=== PATIENT | male | born 1935 | race Caucasian/White ===

== ENCOUNTER → 2022-05-23 10:05 | Outpatient (BNVA) | payer MEDICARE, OTHER, SELFPAY | PROVIDERS: Family Provider Family Medicine; PCP Electrodiagnostic Medicine; Visit Provider Registered Nurse Neonatal Intensive Care | DX: Z20.822 Contact with and (suspected) exposure to COVID-19 (principal); R50.9 Fever, unspecified | CPT/HCPCS: 87426 ==

== ENCOUNTER 2022-06-23 19:47 | Emergency (ER) | payer MEDICARE, OTHER, SELFPAY ==
[2022-06-23 20:38] VITALS: BP 122/71; PULSE 82; RESP 18; TEMP 37; O2SAT 98; BMI 21.2
--- NOTE | 2022-06-23 20:49 | XRR_ITS ---
PROCEDURE INFORMATION: Exam: XR Chest Exam date and time: 06/23/2022 9:52 PM Age: 86 years old Clinical indication: Chest wall pain; Additional info: Right side pain TECHNIQUE: Imaging protocol: Radiologic exam of the chest. Views: 1 view. COMPARISON: No relevant prior studies available. FINDINGS: Lungs: Unremarkable. No consolidation. Pleural spaces: Unremarkable. No pleural effusion. No pneumothorax. Heart/Mediastinum: Unremarkable. No cardiomegaly. Bones/joints: Unremarkable. XR/XR chest 1V portable [id number] IMPRESSION: No acute findings.
[2022-06-23 23:00] VITALS: RESP 16
[2022-06-23] MEDS: fentaNYL 50 mcg/mL INJ 2mL 25 MCG IVP ×2 (23:00→23:58)
--- NOTE | 2022-06-23 23:18 | ED_ITS ---
Documented by User: OVIDIO JoinerP-Aura 06/23/22 23:22 HPI - General Adult General: Chief complaint: General Medical Stated complaint: Right side pain Time Seen by Provider: 06/23/22 22:30 History of Present Illness: 86-year-old male patient in today for right side pain. He reports that he was just sitting at dinner and suddenly got sharp right-sided pain. He reports it is worse with deep inspiration. He denies any trauma. He denies fever or chills. He denies shortness of breath or cough. He denies any urinary symptoms. He states that he has never had pain like this before. He reports it was a 7 to an 8 on a 0-to-10 scale. He did take some Tylenol but is currently about a 5 on a 0-to-10 scale. Associated symptoms: Deny chest pain, dyspnea or palpitations Review of Systems Const: Denies: fever(s) or chills Card: Denies: chest pain or palpitations Resp: Denies: dyspnea GI: Reports: other (Right side pain) : Denies: flank pain, difficulty urinating, dysuria, urinary frequency, urinary urgency or urinary hesitancy Physical Exam Const: COMMON NORMALS: no acute distress, patient oriented x3 and alert Resp: COMMON NORMALS: normal respiratory effort, No use of accessory muscles and clear to auscultation bilaterally AUSCULTATION: clear to auscultation bilaterally Cardio: COMMON NORMALS: regular rate JUGULAR VENOUS DISTENTION: no JVD RATE: regular rate HEART SOUNDS: Murmur heart sound present GI: COMMON NORMALS: Normal to inspection, nondistended, normoactive bowel sounds present, Soft to palpation and non-tender PALPATION: Yes Soft to palpation GI image (male): 1. Right side pain : COMMON NORMALS: Yes no CVA tenderness BLADDER/KIDNEY EXAM: Yes no CVA tenderness Back/Pelvis: COMMON NORMALS: no CVA tenderness Neuro: COMMON NORMALS: patient oriented x3 SENSORIUM/ORIENTATION: Yes alert Course Vital Signs: Vital signs: Vital Signs Temperature 98.6 F 06/23/22 20:38 Pulse Rate 82 06/23/22 20:38 Respiratory Rate 14 06/23/22 23:58 Blood Pressure 122/71 06/23/22 20:38 Pulse Oximetry 98 06/23/22 20:38 Oxygen Delivery Me thod 06/23/22 20:38 MDM - General Adult Medical Decision Making Awaiting labs, UA dip, chest x-ray. Will give fentanyl one-time dose for pain. Lab Data : 06/23/22 23:17 06/23/22 23:02 Radiology Impressions Chest X-Ray 06/23/22 20:49 IMPRESSION: No acute findings. Abdomen/Pelvis CT 06/24/22 00:00 IMPRESSION: 1. Prominent fluid in the small bowel without dilation suggestive of an enteritis. 2. Coronary artery atherosclerotic calcifications. 3. Bilateral dependent atelectasis versus infiltrate. 4. Several hepatic cysts. 5. Bilateral renal cysts, negative for follow up. 6. Bilateral punctate benign-appearing renal parenchymal calcifications. COMMENTS: Consistent with the [employer]'s Incidental Findings Committee white paper (J Am Gerald Radiol 2018): Any incidental renal lesion less than 1 cm or classified as too small to characterize, or any incidental cystic renal lesion characterized as simple-appearing, is likely benign. No follow-up imaging is recommended for these lesions per consensus recommendations based on imaging criteria. Laboratory Results WBC 8.3 10^3/uL (4.0-10.0) 06/23/22 23:17 Corrected WBC Cancelled 06/23/22 23:02 RBC 3.38 10^6/uL (4.1-5.3) L 06/23/22 23:17 Hgb 10.6 g/dL (11.7-16.6) L 06/23/22 23:17 Hct 33.3 % (42.0-52.0) L 06/23/22 23:17 MCV 98.5 fl (80-94) H 06/23/22 23:17 MCH 31.4 pg (28.0-34.0) 06/23/22 23:17 MCHC 31.8 g/dL (30.0-36.0) 06/23/22 23:17 RDW 12.4 % (12.1-15.1) 06/23/22 23:17 Plt Count 273 10^3/cmm (130-400) 06/23/22 23:17 MPV 9.3 fL (7.4-10.4) 06/23/22 23:17 Gran % Cancelled 06/23/22 23:02 Neut % (Auto) 56.0 % 06/23/22 23:17 Lymph % (Auto) 25.9 % 06/23/22 23:17 Stanton % (Auto) 14.1 % 06/23/22 23:17 Eos % (Auto) 3.0 % 06/23/22 23:17 Baso % (Auto) 0.4 % 06/23/22 23:17 Neut # (Auto) 4.67 10^3/uL (1.8-7.7) 06/23/22 23:17 Lymph # (Auto) 2.2 10^3/uL (0.8-4.8) 06/23/22 23:17 Stanton # (Auto) 1.2 10^3/uL (0.2-0.9) H 06/23/22 23:17 Eos # (Auto) 0.3 10^3/uL (0.0-0.8) 06/23/22 23:17 Baso # (Auto) 0.0 10^3/uL (0.0-0.1) 06/23/22 23:17 Absolute Gran (auto) Cancelled 06/23/22 23:02 Nucleated RBC % (auto) 0 % 06/23/22 23:17 Nucleated RBCs # 0.0 /100WBC 06/23/22 23:17 Sodium 137 mmol/L (136-145) 06/23/22 23:02 Potassium 4.6 mmol/L (3.5-5.1) 06/23/22 23:02 Chloride 101 mmol/L (98-107) 06/23/22 23:02 Carbon Dioxide 24 mmol/L (22-29) 06/23/22 23:02 Anion Gap 16.6 (5-19) 06/23/22 23:02 BUN 25 mg/dL (8-23) H 06/23/22 23:02 Creatinine 1.3 mg/dL (0.7-1.2) H 06/23/22 23:02 GFR Calculation Not Reportable 06/23/22 23:02 Glucose 102 mg/dL (65-115) 06/23/22 23:02 Calculated Osmolality 289 mOsm/kg (285-295) 06/23/22 23:02 Calcium 8.6 mg/dL (8.5-10.5) 06/23/22 23:02 Total Bilirubin 0.3 mg/dL (0.15-1.2) 06/23/22 23:02 AST 16 U/L (0-40) 06/23/22 23:02 ALT 11 U/L (0-41) 06/23/22 23:02 Alkaline Phosphatase 101 U/L (40-130) 06/23/22 23:02 Total Protein 6.6 g/dL (6.6-8.7) 06/23/22 23:02 Albumin 3.3 g/dL (3.5-5.2) L 06/23/22 23:02 Globulin 3.3 g/dL (1.3-4.6) 06/23/22 23:02 Lipase 39 U/L (13-60) 06/23/22 23:02 Urine Color Jaci (Yellow) 06/23/22 23:50 Urine Appearance Clear (CLEAR) 06/23/22 23:50 Urine pH 6 (5-7) 06/23/22 23:50 Ur Specific Purdys 1.020 (1.005-1.030) 06/23/22 23:50 Urine Protein Neg (Negative) 06/23/22 23:50 Urine Glucose (UA) Norm (Normal) 06/23/22 23:50 Urine Ketones Negative (Negative) 06/23/22 23:50 Urine Blood Neg (Negative) 06/23/22 23:50 Urine Nitrate Negative (Negative) 06/23/22 23:50 Urine Bilirubin Neg (Negative) 06/23/22 23:50 Urine Urobilinogen 4 mg/dL (Negative) H 06/23/22 23:50 Ur Leukocyte Esterase Negative (Negative) 06/23/22 23:50 Discharge Plan Discharge Patient Disposition: Home Clinical Impression: Acute flank pain Condition: Stable Prescriptions: New hydrocodone-acetaminophen 5-325 mg tablet 1 tab PO Q6H PRN (Reason: pain) Qty: 14 0RF ondansetron 4 mg tablet,disintegrating 4 mg PO Q6H PRN (Reason: nausea and vomiting) Qty: 14 0RF No Action nirmatrelvir-ritonavir 150 mg x 2- 100 mg tablet See Rx Instructions PO .COMPLEX Qty: 30 0RF Rx Instructions: take TWO 150 mg tablets of nirmatrelvir with ONE 100 mg tablet of ritonavir twice daily for 5 days PO methylprednisolone [Medrol (Vicente)] 4 mg tablets,dose pack See Rx Instructions PO PER PKG DIR Qty: 21 0RF Rx Instructions: PO PER PKG DIR Discharge Orders: Discharge ED (Routine); Ordered 06/24/22 Ordered By: Pilar Poe Referrals: Ar Thompson DO [Primary Care Provider] - Discharge Diet: Advance as tolerated Discharge Activity: Resume usual activity Patient Instructions: Flank Pain (ED), Opioid Safety Coding Level of Care Code ED [employer] Account Assistant for Chg Fwd Exam Detailed Documented by User: Pilar Poe MD 06/24/22 01:21 HPI - General Adult General: Chief complaint: General Medical Stated complaint: Right side pain Time Seen by Provider: 06/23/22 22:30 Physical Exam GI: GI image (male): 1. Right side pain Course Vital Signs: Vital signs: Vital Signs Temperature 98.6 F 06/23/22 20:38 Pulse Rate 82 06/23/22 20:38 Respiratory Rate 14 06/23/22 23:58 Blood Pressure 122/71 06/23/22 20:38 Pulse Oximetry 98 06/23/22 20:38 Oxygen Delivery Me thod 06/23/22 20:38 MDM - General Adult Medical Decision Making Awaiting labs, UA dip, chest x-ray. Will give fentanyl one-time dose for pain. Took patient over from midlevel his pain is improved here CT scan shows no acute abnormalities we will prescribe him pain meds he is stable for discharge he is to follow-up with his PCP and return if worsening. Lab Data : 06/23/22 23:17 06/23/22 23:02 Radiology Impressions Chest X-Ray 06/23/22 20:49 IMPRESSION: No acute findings. Abdomen/Pelvis CT 06/24/22 00:00
[2022-06-23 23:29] LABS: Basophils % 0.4 %; Eosinophils # 0.3 10^3/uL (0.0-0.8); Hematocrit 33.3 % (42.0-52.0); Hemoglobin 10.6 g/dL (11.7-16.6); Lymphocytes # 2.2 10^3/uL (0.8-4.8); Lymphocytes % 25.9 %; Mean Corpuscular HGB Conc 31.8 g/dL (30.0-36.0); Mean Corpuscular Hemoglobin 31.4 pg (28.0-34.0); Mean Corpuscular Volume 98.5 fl (80-94); Mean Platelet Volume 9.3 fL (7.4-10.4); Monocytes # 1.2 10^3/uL (0.2-0.9); Monocytes % 14.1 %; Neutrophils # 4.67 10^3/uL (1.8-7.7); Nucleated Red Blood Cells % 0 %; Platelet Count 273 10^3/cmm (130-400); Red Blood Count 3.38 10^6/uL (4.1-5.3); Red Cell Distribution Width 12.4 % (12.1-15.1); White Blood Count 8.3 10^3/uL (4.0-10.0)
[2022-06-23 23:35] LABS: Alanine Aminotransferase 11 U/L (0-41); Albumin Level 3.3 g/dL (3.5-5.2); Alkaline Phosphatase 101 U/L (40-130); Aspartate Amino Transferase 16 U/L (0-40); Blood Urea Nitrogen 25 mg/dL (8-23); Calcium 8.6 mg/dL (8.5-10.5); Carbon Dioxide 24 mmol/L (22-29); Chloride 101 mmol/L (98-107); Globulin 3.3 g/dL (1.3-4.6); Glucose 102 mg/dL (65-115); Lipase 39 U/L (13-60); Osmolality Calculated 289 mOsm/kg (285-295); Sodium 137 mmol/L (136-145); Total Bilirubin 0.3 mg/dL (0.15-1.2); Total Protein 6.6 g/dL (6.6-8.7)
[2022-06-23 23:36] LABS: Anion Gap 16.6 (5-19); Potassium 4.6 mmol/L (3.5-5.1)
[2022-06-23 23:58] VITALS: RESP 14
--- NOTE | 2022-06-24 | CTR_ITS ---
PROCEDURE INFORMATION: Exam: CT Abdomen And Pelvis With Contrast Exam date and time: 06/24/2022 12:54 AM Age: 86 years old Clinical indication: Abdominal pain; Localized; Right; Patient HX: C/O RT sided abd pain. TECHNIQUE: Imaging protocol: Computed tomography of the abdomen and pelvis with contrast. Radiation optimization: All CT scans at this facility use at least one of these dose optimization techniques: automated exposure control; mA and/or kV adjustment per patient size (includes targeted exams where dose is matched to clinical indication); or iterative reconstruction. Contrast material: OMNI 350; Contrast volume: 80 ml; Contrast route: INTRAVENOUS (IV); COMPARISON: CR (CHEST, ) 06/23/2022 9:52 PM RADIATION DOSE METRICS: Total DLP (mGy-cm): 395.23 FINDINGS: Lungs: Bilateral dependent atelectasis versus infiltrate. Heart: Coronary artery atherosclerotic calcifications. Liver: Several hepatic cysts. Gallbladder and bile ducts: Normal. No calcified stones. No ductal dilation. Pancreas: Normal. No ductal dilation. Spleen: Normal. No splenomegaly. Adrenal glands: Normal. No mass. Kidneys and ureters: Bilateral renal cysts, negative for follow up. Bilateral punctate benign-appearing renal parenchymal calcifications. Stomach and bowel: Prominent fluid in the small bowel without dilation suggestive of an enteritis. Appendix: No evidence of appendicitis. Intraperitoneal space: Unremarkable. No free air. No significant fluid collection. Vasculature: Unremarkable. No abdominal aortic aneurysm. Lymph nodes: Unremarkable. No enlarged lymph nodes. Urinary bladder: Unremarkable as visualized. Reproductive: Unremarkable as visualized. Bones/joints: Unremarkable. No acute fracture. Soft tissues: Unremarkable. CT/CT abdomen pelvis w con* [id number] IMPRESSION: 1. Prominent fluid in the small bowel without dilation suggestive of an enteritis. 2. Coronary artery atherosclerotic calcifications. 3. Bilateral dependent atelectasis versus infiltrate. 4. Several hepatic cysts. 5. Bilateral renal cysts, negative for follow up. 6. Bilateral punctate benign-appearing renal parenchymal calcifications. COMMENTS: Consistent with the [employer]'s Incidental Findings Committee white paper (J Am Gerald Radiol 2018): Any incidental renal lesion less than 1 cm or classified as too small to characterize, or any incidental cystic renal lesion characterized as simple-appearing, is likely benign. No follow-up imaging is recommended for these lesions per consensus recommendations based on imaging criteria.
[2022-06-24 00:01] LABS: Add Urine Microscopic? NO; Charge for UA Resulting for Rev
[2022-06-24 00:06] LABS: Bilirubin Urine Neg (Negative); Blood Urine Neg (Negative); Glucose Urine UA Norm (Normal); Ketones Urine Negative (Negative); Leukocyte Esterase Urine Negative (Negative); Nitrate Urine Negative (Negative); Protein Urine Neg (Negative); Urine Appearance Clear (CLEAR); Urine Color Amber (Yellow); Urobilinogen Urine 4 mg/dL (Negative); pH Urine 6 (5-7)
[2022-06-24] MEDS: iohexol 350 mg/mL 100 mL Btl IV (00:56)
[2022-06-24] MEDS: HYDROcodone-acetaminophen 5-325 mg Tablet 1 TAB PO (01:36)
[2022-06-24 01:45] VITALS: BP 113/66; PULSE 68; RESP 20; TEMP 36.6; O2SAT 94
== END 2022-06-24 01:47 | disposition home or self-care (01) ==
PROVIDERS: Nurse Practitioner Family; Emergency Provider Emergency Medicine; PCP Electrodiagnostic Medicine
DX: R10.9 Unspecified abdominal pain (principal)
CPT/HCPCS: 71045; 74177; 80053; 81003; 83690; 85025; 96374; 96376; 99285; J3010; Q9967